=== PATIENT | female | born 1985 | race African-American/Black ===

== ENCOUNTER → 2018-03-13 | Outpatient (CLI) | payer SELFPAY | LOC: M OUTALCOH 11:14 | DX: Z13.9 Encounter for screening, unspecified (principal); F12.10 Cannabis abuse, uncomplicated ==

== ENCOUNTER → 2018-04-20 | Outpatient (REF) | payer MEDICAID, SELFPAY ==
[2018-04-20 18:50] LABS: BASO # 0.1 10^3/uL (0.0-0.2); BASO % 0.9 % (0.0-1.0); EOS # 0.3 10^3/uL (0.0-0.50); EOS % 4.3 % (0.0-3.0); HEMATOCRIT 39.8 % (36.0-47.0); HEMOGLOBIN 12.7 g/dl (12.0-15.5); IMMATURE GRANULOCYTE % 0.1 % (0-3.0); LYMPH # 2.9 10^3/uL (1.5-4.5); MEAN CORPUSCULAR HEMOGLOBIN 28.6 pg (27.0-33.0); MEAN CORPUSCULAR HGB CONC 31.9 g/dl (32.0-36.5); MEAN CORPUSCULAR VOLUME 89.6 fl (80.0-96.0); MONO # 0.5 10^3/uL (0.0-0.8); MONO % 6.6 % (0.0-5.0); NEUTROPHILS # 4.2 10^3/uL (1.8-7.7); NEUTROPHILS % 52.1 % (36.0-66.0); PLATELET COUNT, AUTOMATED 313 10^3/uL (150-450); RED BLOOD COUNT 4.44 10^6/uL (4.00-5.40); RED CELL DISTRIBUTION WIDTH 14.7 % (11.5-14.5)
[2018-04-20 19:36] LABS: ALBUMIN 3.9 GM/DL (3.2-5.2); ALBUMIN/GLOBULIN RATIO 1.22 (1.00-1.93); ALKALINE PHOSPHATASE 70 U/L (45-117); ALT/SGPT 19 U/L (12-78); ANION GAP 7 MEQ/L (8-16); AST/SGOT 14 U/L (7-37); BILIRUBIN,TOTAL 0.1 MG/DL (0.2-1.0); BLOOD UREA NITROGEN 7 MG/DL (7-18); CALCIUM LEVEL 8.6 MG/DL (8.5-10.1); CARBON DIOXIDE LEVEL 25 MEQ/L (21-32); CHLORIDE LEVEL 110 MEQ/L (98-107); GLOMERULAR FILTRATION RATE > 60.0 (>60); GLUCOSE, FASTING 91 MG/DL (70-100); POTASSIUM SERUM 4.1 MEQ/L (3.5-5.1); SODIUM LEVEL 142 MEQ/L (136-145); TOTAL PROTEIN 7.1 GM/DL (6.4-8.2)
== END ==
LOC: M LAB REF 16:31
DX: R42 Dizziness and giddiness (principal)
CPT/HCPCS: 84443

== ENCOUNTER 2018-04-27 14:00 | Outpatient (RCR) | payer MEDICAID | END 2018-05-24 | LOC: M OUTALCOH 04-28 16:00 | DX: F12.10 Cannabis abuse, uncomplicated (principal); F17.200 Nicotine dependence, unspecified, uncomplicated; F11.20 Opioid dependence, uncomplicated ==

== ENCOUNTER → 2018-04-27 | Outpatient (REF) | payer MEDICAID ==
[2018-04-27 13:42] LABS: HCG, SERUM QUANTITATIVE 140 MIU/ML
== END ==
LOC: M LAB REF 12:54
DX: F11.21 Opioid dependence, in remission (principal)

== ENCOUNTER 2018-05-09 19:16 | Emergency (ER) | payer MEDICAID, OTHER | END 2018-05-09 20:30 | disposition home or self-care (01) | LOC: M ED 19:16 | DX: J02.8 Acute pharyngitis due to other specified organisms (principal); R05 Cough; F17.200 Nicotine dependence, unspecified, uncomplicated; Z88.0 Allergy status to penicillin | CPT/HCPCS: 87880 ==

== ENCOUNTER → 2018-05-15 | Outpatient (CLI) | payer MEDICAID | LOC: M RAD 07:43 | DX: Z32.01 Encounter for pregnancy test, result positive (principal); Z3A.01 Less than 8 weeks gestation of pregnancy | CPT/HCPCS: 76801 ==

== ENCOUNTER 2018-05-25 01:00 | Outpatient (RCR) | payer OTHER, MEDICAID | END 2018-06-23 | LOC: M OUTALCOH 05-30 09:00 | DX: F12.10 Cannabis abuse, uncomplicated (principal); F17.200 Nicotine dependence, unspecified, uncomplicated; F11.20 Opioid dependence, uncomplicated ==

== ENCOUNTER → 2018-05-25 | Outpatient (REF) | payer MEDICAID ==
[2018-05-25 20:24] LABS: HCG, SERUM QUANTITATIVE 1819 MIU/ML
== END ==
LOC: M LAB REF 17:15
DX: Z32.00 Encounter for pregnancy test, result unknown (principal)
CPT/HCPCS: 84702

== ENCOUNTER → 2019-04-16 | Outpatient (REF) | payer OTHER ==
[~2019-04-16] MED LIST: MAGICMW SSP; TESS100C PO
[2019-04-16 13:40] LABS: URINE PREG TEST NEGATIVE (NEGATIVE)
[2019-04-16 13:45] LABS: AMORPHOUS SEDIMENT SMALL (NEGATIVE); APPEARANCE, URINE CLOUDY (CLEAR); BACTERIA, URINE AUTO 1+ (NEGATIVE); BILIRUBIN, URINE AUTO NEGATIVE (NEGATIVE); BLOOD, URINE BLOOD NEGATIVE (NEGATIVE); COLOR, URINE YELLOW (YELLOW); GLUCOSE, URINE (UA) AUTO NEGATIVE (NEGATIVE); KETONE, URINE AUTO TRACE mg/dL (NEGATIVE); LEUKOCYTE ESTERASE, URINE AUTO TRACE (NEGATIVE); MUCUS, URINE SMALL (NEGATIVE); NITRITE, URINE AUTO NEGATIVE (NEGATIVE); PROTEIN, URINE AUTO NEGATIVE (NEGATIVE); RBC, URINE AUTO 5 /HPF (0-3); SPECIFIC GRAVITY URINE AUTO 1.019 (1.002-1.035); SQUAMOUS EPITHELIAL CELL UR AU 10 /HPF (0-6); UROBILINOGEN, URINE AUTO 0.2 mg/dL (0.0-2.0); WBC, URINE AUTO 12 /HPF (0-3)
[2019-04-16 15:22] LABS: CHLAMYDIA DNA AMPLIFICATION NEGATIVE (NEGATIVE); GC DNA AMPLIFICATION NEGATIVE (NEGATIVE)
[2019-04-16 16:32] LABS: BASO # 0.1 10^3/uL (0.0-0.2); BASO % 0.9 % (0.0-1.0); EOS # 0.6 10^3/uL (0.0-0.5); EOS % 6.5 % (0.0-3.0); HEMATOCRIT 39.7 % (36.0-47.0); HEMOGLOBIN 12.6 g/dl (12.0-15.5); LYMPH # 2.9 10^3/uL (1.5-5.0); LYMPH % 33.4 % (24.0-44.0); MEAN CORPUSCULAR HEMOGLOBIN 29.4 pg (27.0-33.0); MEAN CORPUSCULAR HGB CONC 31.7 g/dl (32.0-36.5); MEAN CORPUSCULAR VOLUME 92.5 fl (80.0-96.0); MONO # 0.5 10^3/uL (0.0-0.8); MONO % 6.2 % (0.0-5.0); NEUTROPHILS # 4.5 10^3/uL (1.5-8.5); NEUTROPHILS % 52.8 % (36.0-66.0); PLATELET COUNT, AUTOMATED 350 10^3/uL (150-450); RED BLOOD COUNT 4.29 10^6/uL (4.00-5.40); WHITE BLOOD COUNT 8.6 10^3/uL (4.0-10.0)
[2019-04-16 16:41] LABS: ALT/SGPT 15 U/L (12-78); BILIRUBIN,TOTAL 0.2 MG/DL (0.2-1.0); BLOOD UREA NITROGEN 6 MG/DL (7-18); CALCIUM LEVEL 8.4 MG/DL (8.5-10.1); CARBON DIOXIDE LEVEL 27 MEQ/L (21-32); CHLORIDE LEVEL 109 MEQ/L (98-107); CHOLESTEROL LEVEL 111 MG/DL (<200); CREATININE FOR GFR 0.77 MG/DL (0.55-1.30); GLOMERULAR FILTRATION RATE > 60.0 (>60); GLUCOSE, FASTING 98 MG/DL (70-100); HDL CHOLESTEROL 58 MG/DL (>40); POTASSIUM SERUM 4.2 MEQ/L (3.5-5.1); SODIUM LEVEL 141 MEQ/L (136-145); TRIGLYCERIDES LEVEL 41 MG/DL (<150)
[2019-04-16 16:42] LABS: ALBUMIN 3.5 GM/DL (3.2-5.2); CHOLESTEROL RISK RATIO 1.913 (<5); FREE T4 0.88 NG/DL (0.76-1.46); LDL CHOLESTEROL 45 MG/DL (<100); NON-HDL-C 53 MG/DL; THYROID STIMULATING HORMONE 0.835 uIU/ML (0.358-3.740); TOTAL PROTEIN 6.7 GM/DL (6.4-8.2)
[2019-04-16 16:43] LABS: TOTAL 25(OH) VITAMIN D 25.2 NG/ML (30.0-100.0)
[2019-04-16 17:30] LABS: HEMOGLOBIN A1c 5.5 %
[2019-04-18 09:33] LABS: HEPATITIS B SURFACE ANTIGEN NEGATIVE (NEGATIVE)
[2019-04-18 12:25] LABS: HEPATITIS C VIRUS ABY INDEX 0.1 INDEX (<0.8)
[2019-04-24 06:26] LABS: HIV 1&2 SCREEN CENTAUR NEGATIVE (NEGATIVE)
== END ==
LOC: M LAB REF 12:31
PROVIDERS: ATTEND Family Medicine Addiction Medicine
DX: Z32.00 Encounter for pregnancy test, result unknown (principal); Z11.3 Encounter for screening for infections with a predominantly sexual mode of transmission; Z13.9 Encounter for screening, unspecified; N92.6 Irregular menstruation, unspecified

== ENCOUNTER → 2019-08-04 | Outpatient (REF) | payer MEDICAID ==
[2019-08-04 13:31] LABS: URINE PREG TEST NEGATIVE (NEGATIVE)
[2019-08-04 13:41] LABS: APPEARANCE, URINE HAZY (CLEAR); BACTERIA, URINE AUTO 1+ (NEGATIVE); BILIRUBIN, URINE AUTO NEGATIVE (NEGATIVE); BLOOD, URINE BLOOD 2+ (NEGATIVE); COLOR, URINE YELLOW (YELLOW); GLUCOSE, URINE (UA) AUTO NEGATIVE (NEGATIVE); KETONE, URINE AUTO TRACE mg/dL (NEGATIVE); LEUKOCYTE ESTERASE, URINE AUTO NEGATIVE (NEGATIVE); MUCUS, URINE SMALL (NEGATIVE); NITRITE, URINE AUTO NEGATIVE (NEGATIVE); PROTEIN, URINE AUTO NEGATIVE (NEGATIVE); RBC, URINE AUTO 4 /HPF (0-3); SPECIFIC GRAVITY URINE AUTO 1.023 (1.002-1.035); SQUAMOUS EPITHELIAL CELL UR AU 1 /HPF (0-6); UROBILINOGEN, URINE AUTO 0.2 mg/dL (0.0-2.0); WBC, URINE AUTO 3 /HPF (0-3)
[2019-08-04 15:10] LABS: CHLAMYDIA DNA AMPLIFICATION NEGATIVE (NEGATIVE); GC DNA AMPLIFICATION POSITIVE (NEGATIVE)
== END ==
LOC: M LAB REF 13:17
PROVIDERS: ATTEND Physician Assistant Medical
DX: N89.8 Other specified noninflammatory disorders of vagina (principal)

== ENCOUNTER → 2019-09-07 | Outpatient (REF) | payer OTHER, MEDICAID ==
[2019-09-07 19:03] LABS: HCG, SERUM QUALITATIVE NEGATIVE (NEGATIVE)
[2019-09-07 20:25] LABS: CHLAMYDIA DNA AMPLIFICATION NEGATIVE (NEGATIVE); GC DNA AMPLIFICATION NEGATIVE (NEGATIVE)
== END ==
LOC: M LAB REF 18:30
PROVIDERS: ATTEND Physician Assistant
DX: R10.2 Pelvic and perineal pain (principal); Z11.3 Encounter for screening for infections with a predominantly sexual mode of transmission; N92.6 Irregular menstruation, unspecified

== ENCOUNTER 2019-10-03 12:55 | Emergency (ER) | payer MEDICAID, OTHER ==
[~2019-10-03] VITALS: Ht 152.4 cm; Wt 63.8 kg
[2019-10-03] MEDS ORDERED: FLUC150T (13:02)
[2019-10-03] MEDS ORDERED: METR-265 (13:02)
[2019-10-03] MEDS ORDERED: BUPR8SUB (13:02)
[2019-10-03 14:03] LABS: HCG, SERUM QUALITATIVE NEGATIVE (NEGATIVE)
--- NOTE | 2019-10-03 14:20 | REP ---
Pelvic ultrasound for irregular bleeding: The study is performed with transabdominal, endovaginal and Doppler ultrasound assessment. The bladder is suboptimally distended. The uterus is retroverted and normal size measuring 6.7 x 3.6 x 4.4 cm. The endometrium is not thickened measuring 4.3 mm. Right ovary: The right ovary measures 3.4-0.8 x 3 x 1 cm and is normal size. There is a right ovarian cyst measuring 2.2 x 2.2 x 2.6 cm. There is no solid mass. There is vascular flow in the right ovary. The Doppler resistive index in the parenchymal arteries measuring 0.56. Left ovary: The left ovary measures 2.1 x 1.7 x 1.4 cm and is normal size. There is no dominant mass or cyst. There is vascular flow with the Doppler resistive index in the parenchymal arteries measuring 0.58. There is a trace of free fluid in the pelvis. Impression: Retroverted uterus. 2.6 cm right ovarian cyst. Vascular flow in both ovaries. Electronically Signed by Henry Cadena MD 10/03/2019 02:12 P
[2019-10-03] MEDS ORDERED: FLAG500T PO (15:05)
[2019-10-03 15:24] VITALS: BP 134/82
[2019-10-03 15:38] LABS: CHLAMYDIA DNA AMPLIFICATION NEGATIVE (NEGATIVE); GC DNA AMPLIFICATION NEGATIVE (NEGATIVE)
[2019-10-03 17:02] LABS: HEPATITIS B SURFACE ANTIBODY POSITIVE (POSITIVE); HEPATITIS B SURFACE ANTIGEN NEGATIVE (NEGATIVE); HIV 1&2 SCREEN CENTAUR NEGATIVE (NEGATIVE)
[2019-10-03 17:07] LABS: HEPATITIS C VIRUS ABY INDEX > 11.0 INDEX (<0.8)
--- NOTE | 2019-10-03 17:39 | ED PDOC ---
Post-Departure Follow-Up Tried to contact patient regarding lab results with positive screening for hepat itis C. No answer. voicemail full CE MEDINA PA-C Oct 03, 2019 17:39
== END 2019-10-03 15:25 | disposition home or self-care (01) ==
LOC: M ED 12:55
DX: Z11.3 Encounter for screening for infections with a predominantly sexual mode of transmission (principal); N76.0 Acute vaginitis; N83.291 Other ovarian cyst, right side; N85.5 Inversion of uterus; F17.200 Nicotine dependence, unspecified, uncomplicated; Z88.0 Allergy status to penicillin

== ENCOUNTER → 2020-06-11 | Outpatient (CLI) | payer OTHER ==
[~2020-06-11] MED LIST changes: +BUPR8SUB; +FLAG500T PO; +FLUC150T; +METR-265
--- NOTE | 2020-06-17 10:46 | REP ---
INDICATION: ANATOMY COMPARISON: None. TECHNIQUE: Transabdominal obstetrical ultrasound with color Doppler evaluation. FINDINGS: Examination demonstrates a single live intrauterine in breech presentation. motion is identified by technologist. Placenta is noted anterior and grade 1 without evidence for placenta previa or abruption. Amniotic fluid volume is normal. Cervix measures 3.4 cm in length and appears closed.. Gestational age by current measurements 19 weeks 4 days with DAVID 11/01/2020. FHR equals 146 beats per minute. BPD: 4.4 cm 19 weeks 2 days HC: 16.6 cm 19 weeks 2 days AC: 14.5 cm 19 weeks 6 days FL: 3.1 cm 19 weeks 5 days HL: 2.9 cm 19 weeks 4 days HC/AC: 1.14 Estimated weight 308 grams (56thpercentile). Anatomical assessment demonstrates normal structures including cranium, choroid plexus, cavum, cerebellum/posterior fossa, facial features, lungs, four-chamber heart/ventricular outflow tracts, diaphragm, stomach, cord insertion/three-vessel cord, kidneys/bladder, and extremities. IMPRESSION: 1. Single live intrauterine in breech presentation demonstrating appropriate estimated weight. 2. Limited evaluation of the spine. Remainder of the anatomical assessment is complete and normal. <Electronically signed by Domingo Mena > 06/17/20 [id number]
== END ==
LOC: M WHC 14:03
PROVIDERS: ATTEND Obstetrics & Gynecology
DX: O32.1XX0 Maternal care for breech presentation, not applicable or unspecified (principal); Z36.89 Encounter for other specified antenatal screening; Z3A.19 19 weeks gestation of pregnancy

== ENCOUNTER 2020-06-15 18:01 | Emergency (ER) | payer OTHER ==
[~2020-06-15] VITALS: Ht 154.9 cm; Wt 63.6 kg
[2020-06-15] MEDS ORDERED: METOCLOPRAMIDE INJ 10MG/2ML VIAL (J2765 PER 1) IV ONE (18:30)
[2020-06-15] MEDS ORDERED: NS 1,000 ML IV SCH (18:30)
[2020-06-15 18:59] LABS: BASO # 0.1 10^3/uL (0.0-0.2); BASO % 0.5 % (0.0-1.0); EOS # 0.2 10^3/uL (0.0-0.5); HEMATOCRIT 35.2 % (36.0-47.0); HEMOGLOBIN 11.2 g/dl (12.0-15.5); LYMPH # 2.2 10^3/uL (1.5-5.0); LYMPH % 19.9 % (24.0-44.0); MEAN CORPUSCULAR HGB CONC 31.8 g/dl (32.0-36.5); MEAN CORPUSCULAR VOLUME 91.2 fl (80.0-96.0); MONO # 0.6 10^3/uL (0.0-0.8); MONO % 5.8 % (0.0-5.0); NEUTROPHILS # 7.5 10^3/uL (1.5-8.5); NEUTROPHILS % 69.8 % (36.0-66.0); PLATELET COUNT, AUTOMATED 340 10^3/uL (150-450); RED BLOOD COUNT 3.86 10^6/uL (4.00-5.40); WHITE BLOOD COUNT 10.8 10^3/uL (4.0-10.0)
[2020-06-15 19:30] LABS: BLOOD UREA NITROGEN 7 MG/DL (7-18); CALCIUM LEVEL 8.4 MG/DL (8.5-10.1); CARBON DIOXIDE LEVEL 24 MEQ/L (21-32); CHLORIDE LEVEL 109 MEQ/L (98-107); CK-MB VALUE MASS 1.4 NG/ML (<3.6); CPK CREATINE PHOSPHOKINASE 95 U/L (26-192); CREATININE FOR GFR 0.49 MG/DL (0.55-1.30); GLOMERULAR FILTRATION RATE > 60.0 (>60); GLUCOSE, FASTING 67 MG/DL (70-100); MAGNESIUM LEVEL 2.2 MG/DL (1.8-2.4); MB/CK RELATIVE INDEX 1.47 (< OR =4); POTASSIUM SERUM 4.3 MEQ/L (3.5-5.1); SODIUM LEVEL 139 MEQ/L (136-145); THYROID STIMULATING HORMONE 0.691 uIU/ML (0.358-3.740); TROPONIN I < 0.02 NG/ML (< 0.10)
[2020-06-15 19:31] LABS: ETHYL ALCOHOL (ETHANOL) < 0.003 % (0.000-0.010)
--- NOTE | 2020-06-15 20:09 | ECGEPIP ---
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
[2020-06-15 20:30] LABS: AMPHETAMINES LEVEL URINE NEGATIVE (NEGATIVE); BARBITURATES URINE NEGATIVE (NEGATIVE); BENZODIAZEPINES URINE NEGATIVE (NEGATIVE); CANNABINOIDS URINE NEGATIVE (NEGATIVE); COCAINE METABOLITE URINE NEGATIVE (NEGATIVE); METHADONE URINE NEGATIVE (NEGATIVE); OPIATES URINE NEGATIVE (NEGATIVE); PHENCYCLIDINE URINE NEGATIVE (NEGATIVE)
[2020-06-15 21:15] VITALS: BP 106/55
== END 2020-06-15 21:26 | disposition home or self-care (01) ==
LOC: M ED 18:01
DX: O99.891 Other specified diseases and conditions complicating pregnancy (principal); R55 Syncope and collapse; Z88.0 Allergy status to penicillin; O99.332 Smoking (tobacco) complicating pregnancy, second trimester; F17.210 Nicotine dependence, cigarettes, uncomplicated; O99.322 Drug use complicating pregnancy, second trimester; F15.11 Other stimulant abuse, in remission; Z3A.00 Weeks of gestation of pregnancy not specified
CPT/HCPCS: 80048; 80307; 81001; 82550; 82553; 83735; 84443; 85025; 93005; 93041; 94760; 96361; 96374; 99285; G0480; J2765

== ENCOUNTER → 2020-09-12 | Outpatient (CLI) | payer OTHER ==
--- NOTE | 2020-09-12 19:04 | REP ---
INDICATION: F/U ANATOMY/. Spine. COMPARISON: Comparison sonography June 11, 2020.. TECHNIQUE: Transabdominal obstetric sonography. FINDINGS: Scanning through the gravid uterus demonstrates a viable single intrauterine gestation in cephalic lie. motion is observed and heart rate is recorded at 147 beats per minute. A anterior placenta is seen, grade 2, without evidence of placenta previa. Closed cervical length is measured at 3.3 cm transabdominally. No extrauterine abnormality is observed. Amniotic fluid is subjectively normal. The following anatomic structures are identified today and felt to be unremarkable: cranium, face and profile, four-chamber heart with left and right ventricular outflow tract views, diaphragm, left-sided stomach, right and left kidney, urinary bladder, three-vessel cord. spine is still less than optimally seen today due to position.. Biometry chart: BPD 7.7 cm, 30 weeks 5 days Head circumference 27.6 cm, 30 weeks 2 days Abdominal circumference 26.4 cm, 30 weeks 3 days Femur length 5.7 cm, 29 weeks 6 days Humeral length 5.1 cm, 29 weeks 5 days HC AC ratio normal 1.05 Cephalic index normal 0.78 Estimated weight 1545 g, 3 lb 6 oz, 17th percentile for 32 weeks 6 days IMPRESSION: Viable single intrauterine gestation at 30 weeks 1 days by today's composite sonographic criteria. DAVID by today's sonography November 20, 2020. No complication identified. Expected gestational age estimate based on prior sonography is 32 weeks 6 days DAVID by prior sonography 01 November 2020. Estimated weight 17th percentile. <Electronically signed by Gary Gabriel > 09/12/20 1901
== END ==
LOC: M WHC 13:38
PROVIDERS: ATTEND Advanced Practice Midwife
DX: Z36.9 Encounter for antenatal screening, unspecified (principal); Z3A.30 30 weeks gestation of pregnancy

== ENCOUNTER 2020-09-30 16:18 | Outpatient (CLI) | payer OTHER, MEDICAID ==
[2020-09-30 17:07] VITALS: BP 122/81
[2020-09-30 18:34] VITALS: BP 161/111
[2020-09-30 18:35] VITALS: BP 140/79
--- NOTE | 2020-09-30 19:02 | IPNPDOC ---
Obstetrical Progress Note Date of Service Sep 30, 2020 Subjective S: 34yo at 35+3 weeks EGA. Presents with concern for PPROM. States she has had vaginal dampness/fluid for the last 2 days. In the office today, she was noted to have pooling of fluid in the vagina and +Nitrazine. Between her appointment and her presentation to the hospital, she has not had any leakage of fluid / large gushes. Denies vaginal bleeding, or foul odor. Denies recent intercourse. Reports regular movement. ROS: no f/c/n/v/MARSH/sob/cp. PMH/SH: none OB: 11/2005, term , uncomplicated. 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 PN course: -inconsistent care (see record) O: Normotensive, normal HR, afebrile Abd: soft,nt,nd. Uterine fundus nontender. Pelvic: SSE: cervix visually closed, no pooling (even after valsalva) or vaginal bleeding, no foul odor. +cervical mucous / leukorrhea. Nitrazine: blue. SVE: 1cm, 25% effaced, -3 station, intact membrane palpated, no gush of fluid with cervical manipulation, no bloody show. NEGATIVE FERNING. US,crowley: cephalic. BARBARA = 11.0, MVP = 5.0cm. Fluid pocket noted to be immediately adjacent to the head. EFM: Cat I FHR/Reactive, no decels. Normal baseline, moderate variability [place]: no contraction pattern. A/P: 34yo at 35+3 weeks EGA. No clear evidence of PPROM, IAI, or PTL. +cervical mucous / leukorrhea. Reassuring maternal and status. These findings were shared with the patient, who expressed relief that her membranes were still intact. She denied any further leakage of fluid during the remainder of our encounter. -When I offered continued monitoring/observation , labs, and an official US , the patient became frustrated and refused. She demanded to leave. -She was advised by myself and the L&D RN to maintain close, weekly follow up until delivery. Third trimester precautions were reviewed. DO GRICELDA Cao JONATHAN R. DO Sep 30, 2020 19:02
[2020-09-30] MEDS ORDERED: COLA100C5 PO (19:31)
[2020-09-30] MEDS ORDERED: CLAR10CA3 PO (19:31)
[2020-09-30] MEDS ORDERED: OMEP10CASR PO (19:31)
[2020-09-30] MEDS ORDERED: PRENTAB9 PO (19:31)
[2020-09-30] MEDS ORDERED: MUCI600T31 PO (19:31)
== END 2020-09-30 18:40 | disposition home or self-care (01) ==
LOC: M LDI 16:18 → M LDO 16:18 → UNDOADMIN 16:18 → M LDI 16:19 → M LDO 18:40 → UNDODISIN 18:40 → EDSTATUS 10-02 09:54
PROVIDERS: ADMIT Obstetrics & Gynecology; ATTEND Obstetrics & Gynecology
DX: O26.893 Other specified pregnancy related conditions, third trimester (principal); Z3A.35 35 weeks gestation of pregnancy

== ENCOUNTER 2020-10-06 08:40 | Inpatient (IN) | payer MEDICAID, OTHER ==
[2020-10-06] VITALS (62 sets, daily range): BP systolic 91–144; BP diastolic 52–85
[~2020-10-06] VITALS: Ht 154.9 cm; Wt 64.4 kg
[~2020-10-06 08:40] MED LIST changes: +CLAR10CA3 PO; +COLA100C5 PO; +MUCI600T31 PO; +OMEP10CASR PO; +PRENTAB9 PO
[2020-10-06] MEDS: LR 1,000 ML IV SCH ×3 (09:55→17:16)
[2020-10-06] MEDS ORDERED: LACTATED RINGER'S 1000 ML IV STA (09:55)
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
[2020-10-06 11:13] LABS: BASO % 0.3 % (0.0-1.0); EOS # 0.3 10^3/uL (0.0-0.5); EOS % 1.8 % (0.0-3.0); HEMATOCRIT 32.6 % (36.0-47.0); HEMOGLOBIN 10.4 g/dl (12.0-15.5); LYMPH # 2.5 10^3/uL (1.5-5.0); LYMPH % 17.9 % (24.0-44.0); MEAN CORPUSCULAR HEMOGLOBIN 28.7 pg (27.0-33.0); MEAN CORPUSCULAR HGB CONC 31.9 g/dl (32.0-36.5); MEAN CORPUSCULAR VOLUME 90.1 fl (80.0-96.0); MONO % 6.8 % (2.0-8.0); NEUTROPHILS # 10.3 10^3/uL (1.5-8.5); NEUTROPHILS % 72.6 % (36.0-66.0); PLATELET COUNT, AUTOMATED 268 10^3/uL (150-450); RED BLOOD COUNT 3.62 10^6/uL (4.00-5.40); WHITE BLOOD COUNT 14.2 10^3/uL (4.0-10.0)
[2020-10-06 11:18] LABS: AMPHETAMINES URINE REFLEX NEGATIVE (NEGATIVE); BARBITURATES URINE REFLEX NEGATIVE (NEGATIVE); BENZODIAZEPINES URINE REFLEX NEGATIVE (NEGATIVE); CANNABINOIDS URINE REFLEX NEGATIVE (NEGATIVE); COCAINE METABOLITE URINE REFLE NEGATIVE (NEGATIVE); METHADONE URINE REFLEX NEGATIVE (NEGATIVE); OPIATES URINE REFLEX NEGATIVE (NEGATIVE); PHENCYCLIDINE URINE REFLEX NEGATIVE (NEGATIVE)
[2020-10-06] MEDS: VANCOMYCIN HCL 1,000 MG, VIAL MATE ADAPTER 1 EACH in NS 250 ML IV SCH ×2 (11:45→22:13)
[2020-10-06] MEDS ORDERED: FENTANYL 2MCG/ML ROPIVACAINE 0.2% IN 0.9% NACL 100ML IVBAG As Ordered ONE (12:06)
[2020-10-06] MEDS ORDERED: diphenhydrAMINE 50MG/ML VIAL (J1200) IV PRN (12:20)
[2020-10-06] MEDS ORDERED: REFRIGERATOR IV KEYS XX PRN (12:20)
[2020-10-06] MEDS ORDERED: EPIDURAL/PCA KEYS XX PRN (12:20)
[2020-10-06] MEDS ORDERED: LACTATED RINGER'S 1000 ML IV PRN (12:20)
[2020-10-06] MEDS ORDERED: ONDANSETRON 4MG/2ML VIAL IV PRN (12:20)
[2020-10-06] MEDS ORDERED: EPIDURAL COMMENT XX SCH (12:20)
[2020-10-06] MEDS ORDERED: NALOXONE INJ 0.4MG/1ML VIAL (J2310 PER 1MG) IV PRN (12:20)
[2020-10-06] MEDS ORDERED: FENTANYL/ROPIVACAINE/NACL BAG 100 ML EPIDURAL SCH (12:20)
[2020-10-06 12:36] LABS: HEPATITIS C VIRUS ABY INDEX < 0.0 INDEX (<0.8); HIV 1&2 SCREEN CENTAUR NEGATIVE (NEGATIVE)
[2020-10-06] MEDS: ePHEDrine SULFATE 25 MG/5 ML(5MG/ML) SYRINGE IV PRN ×3 (14:00→14:16)
[2020-10-06] MEDS ORDERED: ePHEDrine INJ 50 MG/ML VIAL IV PRN (14:45)
[2020-10-06] MEDS ORDERED: ePHEDrine SULFATE 25 MG/5 ML(5MG/ML) SYRINGE IV PRN (14:53)
[2020-10-06] MEDS ORDERED: OXYTOCIN DRIP 30 UNITS in IV 1 EA IV SCH ×2 (16:35→23:06)
--- NOTE | 2020-10-06 16:35 | IPNPDOC ---
Obstetrical Progress Note Date of Service Oct 06, 2020 Subjective Patient reports she is comfortable with her epidural. Objective Vital Signs Date Time Temp Pulse Resp B/P (MAP) Pulse Ox O2 Delivery O2 Flow Rate FiO2 10/06/20 13:01 99.0 67 18 107/68 (81) Assessment Heart Rate (FHR): 140 Variability: Moderate Accelerations: Positive Decelerations: None Heart Rate Tracing: Category I Tocometer Contractions: Yes Frequency: regular, other (5-6 minutes) Sterile Vaginal Examination Dilation: 4 cm Effacement (%): 100% Station: 0 Postion/Presentation: Cephalic presentation Assessment and Plan Age: 34 : 3 Term: 1 Pre-term: 0 Abortions: 1 Livin EGA at Admission: 36.2 Status: Reassuring Group B Streptococcus: Unknown Anticipate: Vaginal Delivery Additional Comments No bag of fluid felt with exam. Patient reports she thinks her water broke 6 days ago. Good bloody show noted. Will start IV Pitocin due to unknown rupture date/time. Betamethasone was ordered. EDYTA ELLIS CNM Oct 06, 2020 16:35
[2020-10-06] MEDS ORDERED: BETAMETHASONE SOLUSPAN 6MG/ML 5ML VIAL (J0702 PER 3MG) IM SCH (17:00)
[2020-10-06 17:19] LABS: CHLAMYDIA DNA AMPLIFICATION NEGATIVE (NEGATIVE); GC DNA AMPLIFICATION NEGATIVE (NEGATIVE)
--- NOTE | 2020-10-06 23:09 | DNPDOC ---
[facility] Delivery Note Delivery Note DATE OF DELIVERY: 10/06/20 at 2242 PREDELIVERY DIAGNOSIS: 36-2/7 weeks' gestation and labor with SROM. POST DELIVERY DIAGNOSIS: Delivered. PROCEDURE: Spontaneous vaginal delivery. B2B SALES EXECUTIVE: Edyta Kuhn CNM, MONIK ANESTHESIA: epidural. ESTIMATED BLOOD LOSS: 100 mL. FINDINGS: 5 pounds; 2270 grams; female infant, Score 9/9, SROM with unknown date/time; labor; non-compliance with care. DELIVERY SUMMARY: Erica is a 34-year-old female who is now a who presented to L&D in active labor with SROM of unknown date/time. She requested an epidural for pain management. Her labor was augmented with IV Pitocin. She progressed to fully dilated at 2226 and pushed to a living female in the NICK position with restitution to ROT. The anterior shoulder delivered with was and the corpus immediately followed. The baby was placed skin to skin active and crying with stimulation. The cord was clamped after 2 minutes and cut by the patient. The placenta delivered spontaneously and intact at 2246. Uterine hemostasis was achieved via rapid infusion of IV Pitocin and fundal massage. The vagina, cervix, and perineum was inspected and found to be intact. Mom plans to formula feed. Both mom and baby are in stable condition. All counts of instruments and sponges are correct. EDYTA KUHN CNM Oct 06, 2020 23:09
[2020-10-06] MEDS ORDERED: RHOGAM 300 MCG (1500 IU) INJ (J2790) IM SCH (23:10)
[2020-10-06] MEDS ORDERED: DOCUSATE SODIUM 100MG CAPSULE PO PRN (23:10)
[2020-10-06] MEDS ORDERED: MEASLES,MUMPS,RUBELLA VACCINE INJ (MMR-II) (90707) SC SCH (23:10)
[2020-10-06] MEDS ORDERED: ACETAMINOPHEN TAB 650MG DOSE (2X325MG) PO PRN (23:10)
[2020-10-06] MEDS ORDERED: ANUSOL HC CREAM 30GM TOP PRN (23:10)
[2020-10-06] MEDS ORDERED: IBUPROFEN 800 MG TAB PO PRN (23:10)
[2020-10-06] MEDS ORDERED: IBUPROFEN 600MG TAB PO PRN (23:10)
[2020-10-06] MEDS ORDERED: METHYLERGONOVINE MALEATE 0.2 MG TAB PO PRN (23:10)
[2020-10-06] MEDS ORDERED: DIBUCAINE 1% OINTMENT 30GM TOP PRN (23:10)
[2020-10-07] MEDS: ACETAMINOPHEN 500 MG TAB PO PRN ×3 (01:06→19:29)
[2020-10-07 01:07] VITALS: BP 128/71
[2020-10-07 06:06] VITALS: BP 117/60
[2020-10-07] MEDS ORDERED: PERCOCET 5MG/325MG TAB PO ONE (08:55)
[2020-10-07] MEDS ORDERED: PRENATAL VITAMINS CHEWABLE TABLET PO SCH (09:00)
[2020-10-07] MEDS ORDERED: ACET-683 PO (09:03)
[2020-10-07] MEDS ORDERED: IBUP80TA PO (09:03)
[2020-10-07] MEDS ORDERED: NICOTINE 14 MG/24 HR TRANSDERMAL TD PRN (09:05)
--- NOTE | 2020-10-07 09:07 | IPNPDOC ---
Progress Note Date of Service: Oct 07, 2020 Day#: 1 Progress Note SUBJECT: Erica is a 34-year-old female who is now a who presented to L&D in active labor with SROM of unknown time/date. She reports her cramping is bad and Motrin and Tylenol are touching her cramps. 1 tab of Percocet ordered. She has been ambulating, voiding spontaneously without issue and tolerating regular diet. She is bottle feeding. OBJECTIVE: VITAL SIGNS: Within normal limits, afebrile. Alert and oriented times three. Breath sounds clear to auscultation. Abdomen: Fundus firm at U-1. Soft, NTTP. Minimal lochia. ASSESSMENT: Day 1 PLAN: 1. Continue supportive nursing care. 2. Patient may shower today. 3. Social service consult ot be done as patient reports she is lacking things to care for her . 4. Percocet ordered for pain management. 5. Anticipate discharge to home tomorrow. VS, I&O, 24H, Fishbone Vital Signs/I&O Vital Signs Date Time Temp Pulse Resp B/P (MAP) Pulse Ox O2 Delivery O2 Flow Rate FiO2 10/07/20 06:06 98.5 64 18 117/60 (79) 10/07/20 01:07 97 10/06/20 19:16 Room Air I&O- Last 24 Hours up to 6 AM 10/07/20 06:00 Intake Total 4644 ml Output Total 800 ml Balance 3844 ml Laboratory Data 24H LABS Laboratory Tests 2 10/06/20 09:58: Serology Scanned Report Hepatitis B Testing 10/06/20 10:52: Urine Opiates Screen NEGATIVE, Urine Methadone Screen NEGATIVE, Urine Barbiturates Screen NEGATIVE, Urine Phencyclidine Screen NEGATIVE, Urine Amphetamines Screen NEGATIVE, Urine Benzodiazepines Screen NEGATIVE, Urine Cocaine Metabolite Screen NEGATIVE, Urine Cannabinoids Screen NEGATIVE, Chlamydia trachomatis DNA (EVIE) NEGATIVE, Neisseria gonorrhoeae DNA (EVIE) NEGATI VE 10/06/20 11:03: Immature Granulocyte % (Auto) 0.6, Neutrophils (%) (Auto) 72.6H, Lymphocytes (%) (Auto) 17.9L, Monocytes (%) (Auto) 6.8, Eosinophils (%) (Auto) 1.8, Basophils ( %) (Auto) 0.3, Neutrophils # (Auto) 10.3H, Lymphocytes # (Auto) 2.5, Monocytes # (Auto) 1.0H, Eosinophils # (Auto) 0.3, Basophils # (Auto) 0.0, Nucleated Red Blood Cells % (auto) 0.0, Syphilis Serology NONREACTIVE, Maternal Hepatitis B Surface Ag NEGATIVE, Hepatitis C Antibody Index < 0.0, HIV Antigen/Antibody Combo Qual NEGATIVE, Rubella Immunity Screen IMMUNE CBC/BMP Laboratory Tests 10/06/20 11:03 Microbiology Microbiology 10/06/20 Group B Streptococcus Screen (BISHOP), Received Pending EDYTA ELLIS CNM Oct 07, 2020 09:07
[2020-10-07] MEDS ORDERED: BOOSTRIX/ADACEL VACCINE (DIPHTH/PERTUSS/ACELL/TETANUS) 0.5ML SYR IM ONE (10:00)
[2020-10-07] MEDS ORDERED: medroxyPROGESTERone ACET IM SUSP 150 MG/ML VIAL (J1050) IM ONE (10:20)
[2020-10-07 18:00] VITALS: BP 160/87
[2020-10-07] MEDS ORDERED: NICOTINE 14 MG/24 HR TRANSDERMAL TD SCH (21:00)
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
--- NOTE | 2020-10-07 21:40 | DS.PDOC ---
Discharge Summary General Date of Admission Oct 06, 2020 at 09:54 Date of Discharge Oct 07, 2020 Discharge Summary PROCEDURES PERFORMED DURING STAY: spontaneous vaginal delivery ADMITTING DIAGNOSES: 1. active labor with PPROM DISCHARGE DIAGNOSES: 1. active labor with PPROM s/p 2. left AMA COMPLICATIONS/CHIEF COMPLAINT: LABOR. HISTORY OF PRESENT ILLNESS/HOSPITAL COURSE: Erica is a 34yo who presented to L&D in active labor with PPROM of unknown date/time and proceeded to have an uncomplicated at 36+wk. She had a benign course, though CPS was engaged regarding patient's significant social risk factors. Patient ultimately left AMA without her infant for her own reasons. DISCHARGE MEDICATIONS: Please see below. ALLERGIES: Please see below. PHYSICAL EXAMINATION ON DISCHARGE: VITAL SIGNS: Please see below. GENERAL: WDWN Abdomen: soft, NTTP, fundus firm LABORATORY DATA: Please see below. ACTIVITY: As tolerated, vaginal rest 6 weeks no heavy lifting DIET: regular DISPOSITION: home DISCHARGE INSTRUCTIONS: 1. 6 week follow up 2. Discussed return precautions DISCHARGE CONDITION: Stable TIME SPENT ON DISCHARGE: Greater than 20 minutes. Vital Signs/I&Os Vital Signs Date Time Temp Pulse Resp B/P (MAP) Pulse Ox O2 Delivery O2 Flow Rate FiO2 10/07/20 18:00 98.1 94 18 160/87 (111) 100 Room Air I&O- Last 24 Hours up to 6 AM 10/07/20 06:00 Intake Total 4644 ml Output Total 800 ml Balance 3844 ml Microbiology Microbiology 10/06/20 Group B Streptococcus Screen (BISHOP), Received Pending Discharge Medications Scheduled Docusate Sodium (Colace) 100 Mg Capsule, 100 MG PO DAILY, (Reported) No.137/Iron/Folic Acd ( Vitamin Tablet) 1 Each Tablet, 1 TAB PO DAILY, (Reported) Scheduled PRN Acetaminophen (Acetaminophen) 500 Mg Tablet, 1,000 MG PO Q8HP PRN for PAIN Ibuprofen (Ibuprofen) 800 Mg Tablet, 800 MG PO Q8HP PRN for PAIN Allergies Coded Allergies: Penicillins (Verified Allergy, Unknown, 10/03/19) Ayanna Vazquez MD Oct 07, 2020 21:40
[2020-10-08] MEDS ORDERED: medroxyPROGESTERone ACET IM SUSP 150 MG/ML VIAL (J1050) IM ONE (09:00)
== END 2020-10-07 20:35 | disposition left against medical advice (07) | DRG 560 ==
LOC: M LDO 08:40 → M LDI 09:54 → M OBS 10-07 00:50
PROVIDERS: ADMIT Advanced Practice Midwife; ATTEND Advanced Practice Midwife
PROC: 10E0XZZ Delivery of Products of Conception, External Approach (ICD-10-PCS; principal; 2020-10-06)
DX: O60.14X0 Preterm labor third trimester with preterm delivery third trimester, not applicable or unspecified (principal); O99.334 Smoking (tobacco) complicating childbirth; Z37.0 Single live birth; Z3A.36 36 weeks gestation of pregnancy; Z91.19 Patient's noncompliance with other medical treatment and regimen; Z88.0 Allergy status to penicillin